=== PATIENT | male | born 1985 | race Caucasian/White ===

== ENCOUNTER 2019-04-11 15:41 | Emergency (ER) | payer OTHER, SELFPAY ==
[2019-04-11 15:55] VITALS: BP 125/89; PULSE 85; RESP 20; TEMP 37.2; O2SAT 100
--- NOTE | 2019-04-11 15:57 | ED.URI ---
HPI - URI/Sore Throat General Chief Complaint: Upper Respiratory Infection Stated Complaint: fever/cough/body aches History of Present Illness HPI Narrative: This is a 34-year-old male comes in complaining of a sore throat body aches cough and fever patient states that the symptoms started on Sunday this is seem like he is getting any better and the sore throat continues to get worse. Patient denies any dizziness Related Data Allergies Allergy/AdvReac Type Severity Reaction Status Date / Time No Known Allergies Allergy Verified 04/11/19 16:02 Review of Systems Review of Systems: Narrative: CONSTITUTIONAL: Reports right upper fever, chills, or sweats. EYES: Denies visual changes, redness, or discharge. ENT: Denies rhinorrhea, congestion, sore throat, or otalgia. CARDIOVASCULAR:Denies chest pain, palpitations, or edema. RESPIRATORY: Reports cough or dyspnea. GASTROINTESTINAL: Denies abdominal pain, nausea, vomiting, or diarrhea. GENITOURINARY: Denies dysuria or hematuria. SKIN:[Denies rash or itching. MUSCULOSKELETAL:Denies back pain, joint pain, or myalgia. NEUROLOGIC: Denies headache, numbness, or weakness. PSYCHIATRIC:Denies anxiety or depression PMFSH Comments At time as signature, I have reviewed and agree with nursing past medical, social, surgical and family history. Please see nursing chart for further information. There is no relevant family history pertinent to the presenting complaint. Exam Narrative: Exam Narrative: GENERAL:Well-appearing, well-nourished, and in no acute distress. HEAD:Normocephalic, atraumatic. EYES: PERRLA and EOMI. ENT: Nares clear, no rhinorrhea or epistaxis. Mucous membranes moist. Slight pharyngeal erythema copious postnasal drip TM on the right bulging NECK: Supple. CHEST: Clear to auscultation. No respiratory distress. HEART: Regular rate and rhythm. No murmur heard. Normal peripheral pulses. ABDOMEN: Soft, nontender, nondistended, normal active bowel sounds. EXTREMITIES: Normal range of motion. No edema. SKIN: Warm, dry, no rash. NEURO: No focal deficits. Alert and oriented x3. Course Vital Signs Vital signs: Vital Signs Temperature 98.9 F 04/11/19 15:55 Pulse Rate 85 04/11/19 15:55 Respiratory Rate 20 04/11/19 15:55 Blood Pressure 125/89 04/11/19 15:55 Pulse Oximetry 100 04/11/19 15:55 Temperature 98.9 F 04/11/19 15:55 Pulse Rate 85 04/11/19 15:55 Respiratory Rate 20 04/11/19 15:55 Blood Pressure 125/89 04/11/19 15:55 Pulse Oximetry 100 04/11/19 15:55 Discharge Plan Discharge Clinical Impression: Influenza-like illness, Strep sore throat Patient Disposition: Home, Self-Care Condition: Stable Instructions: Antibiotic Form, Pharyngitis (ED), Strep Throat (ED), Influenza (ED) Prescriptions: New amoxicillin 500 mg capsule 500 mg PO Q12H 10 Days Qty: 20 RF: 0 Follow-up/Referrals: UNKNOWN,DOCTOR [Primary Care Provider] - Stand Alone Forms: Work/School Release IP Time of Disposition: 16:15 Discharge Date/Time: 04/11/19 16:23
== END 2019-04-11 16:23 | disposition home or self-care (01) ==
PROVIDERS: Emergency Provider Nurse Practitioner Family
DX: J02.0 Streptococcal pharyngitis (principal); R05 Cough; R50.9 Fever, unspecified
CPT/HCPCS: 87804; 87880; 99203; G0463

== ENCOUNTER 2021-01-05 13:17 | Emergency (ER) | payer OTHER, SELFPAY ==
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
[2021-01-05 13:53] VITALS: BP 137/100; PULSE 116; RESP 18; TEMP 36.9; O2SAT 98
== END 2021-01-05 14:24 | disposition home or self-care (01) ==
PROVIDERS: Emergency Provider Nurse Practitioner Family
DX: S60.221A Contusion of right hand, initial encounter (principal); V89.2XXA Person injured in unspecified motor-vehicle accident, traffic, initial encounter
CPT/HCPCS: 73130; 99213; G0463